=== PATIENT | male | born 1970 | race Caucasian/White ===

== ENCOUNTER 2020-10-15 01:35 | Emergency (ER) | payer OTHER ==
[~2020-10-15] VITALS: Ht 182.9 cm; Wt 65.9 kg
[2020-10-15] MEDS ORDERED: IBUPROFEN 400 MG TABLET PO ONE (04:45)
[2020-10-15] MEDS ORDERED: ACETAMINOPHEN 325 MG TABLET PO ONE (04:45)
[2020-10-15] MEDS ORDERED: CEPHALEXIN MONOHYDRATE 500 MG CAPSULE PO ONE (05:30)
[2020-10-15] MEDS ORDERED: SULFAMETHOX/TRIMETH DS 800-160 MG/TABLET PO ONE (05:30)
[2020-10-15 05:40] VITALS: BP 117/65
== END 2020-10-15 06:06 | disposition home or self-care (01) ==
LOC: EMS 01:38
DX: L03.116 Cellulitis of left lower limb (principal); F11.90 Opioid use, unspecified, uncomplicated
CPT/HCPCS: 99284; Z7502; Z7610

== ENCOUNTER 2020-11-17 13:16 | Emergency (ER) | payer OTHER ==
[~2020-11-17] VITALS: Ht 182.9 cm; Wt 72.7 kg
[~2020-11-17 13:16] MED LIST: BACTDSB PO
[2020-11-17] MEDS ORDERED: BUPR1FIL7 SL (13:21)
[2020-11-17] MEDS ORDERED: LIDOCAINE 1% 10 ML VIAL SQ ONE (15:15)
[2020-11-17] MEDS ORDERED: BACITRACIN 0.9 GM PACKET OINTMENT TP ONE (15:30)
[2020-11-17 15:37] VITALS: BP 116/71
== END 2020-11-17 15:44 | disposition home or self-care (01) ==
LOC: EMS 13:20
DX: L02.612 Cutaneous abscess of left foot (principal); F17.210 Nicotine dependence, cigarettes, uncomplicated; F11.90 Opioid use, unspecified, uncomplicated; F15.90 Other stimulant use, unspecified, uncomplicated
CPT/HCPCS: 10060; 73660; 99283; J3490